=== PATIENT | male | born 2000 | race Caucasian/White ===

== ENCOUNTER 2023-05-21 07:28 | Emergency (ER) | payer OTHER ==
[~2023-05-21] VITALS: Ht 160 cm; Wt 90.7 kg
[2023-05-21] MEDS ORDERED: FLONASE16 GM IH (10:00)
[2023-05-21] MEDS ORDERED: ZYRTEC10 MG PO (10:00)
[2023-05-21] MEDS ORDERED: AMOX1TAB5 PO (10:00)
== END 2023-05-21 10:05 | disposition home or self-care (01) ==
LOC: ER 07:28
DX: J32.9 Chronic sinusitis, unspecified (principal); R51.9 Headache, unspecified